=== PATIENT | male | born 1950 | race Caucasian/White ===

== ENCOUNTER 2017-05-02 11:34 | Inpatient (IN) | payer MEDICARE, MEDICAID ==
[~2017-05-02] VITALS: Ht 165.1 cm; Wt 125.4 kg
[2017-05-02] MEDS ORDERED: INSU100V4 SC (11:59)
[2017-05-02] MEDS ORDERED: METF500T27 PO (11:59)
[2017-05-02] MEDS ORDERED: LISI-167 PO (11:59)
[2017-05-02 12:19] LABS: HEMATOCRIT 43.8 % (39.2-51.8); HEMOGLOBIN 14.9 g/dL (13.7-18.0); WHITE BLOOD COUNT 20.6 x10^3/uL (3.4-10)
[2017-05-02 12:28] LABS: ASPARTATE AMINO TRANSFERASE 18 U/L (15-37); BLOOD UREA NITROGEN 37 mg/dL (7-18)
[2017-05-02 12:32] LABS: IS PT STATUS REG ER OR PRE ER? YES
[2017-05-02] MEDS: SODIUM CHLORIDE 0.9% 1,000 ML IV SCH (15:58)
[2017-05-02] MEDS ORDERED: DOCUSATE 100 MG CAPSULE PO PRN (16:00)
[2017-05-02] MEDS ORDERED: LABETALOL 5MG/ML, 20ML IVPush PRN (16:00)
[2017-05-02] MEDS ORDERED: ONDANSETRON ODT 4 MG PO PRN (16:00)
[2017-05-02] MEDS ORDERED: ONDANSETRON 2MG/ML, 2ML IVPush PRN (16:00)
[2017-05-02] MEDS ORDERED: HEPARIN 5,000 UNITS/ML, 1ML ONE (16:13)
[2017-05-02] MEDS: HEPARIN 5,000 UNITS/ML, 1ML SQ SCH (16:21)
[2017-05-02 17:25] VITALS: BP 103/65
[2017-05-02] MEDS: INSULIN ASPART 100 UNITS/ML, PEN SQ-INSULIN SCH ×2 (18:00→20:28)
[2017-05-02 20:00] VITALS: BP 101/69
[2017-05-03] MEDS: HEPARIN 5,000 UNITS/ML, 1ML SQ SCH ×3 (00:57→16:00)
[2017-05-03 02:39] VITALS: BP 115/75
[2017-05-03] MEDS: SODIUM CHLORIDE 0.9% 1,000 ML IV SCH ×2 (02:49→11:41)
[2017-05-03 06:09] LABS: HEMATOCRIT 41.9 % (39.2-51.8); HEMOGLOBIN 14.3 g/dL (13.7-18.0); WHITE BLOOD COUNT 16.6 x10^3/uL (3.4-10)
[2017-05-03 06:15] LABS: BLOOD UREA NITROGEN 40 mg/dL (7-18)
[2017-05-03 06:29] LABS: ASPARTATE AMINO TRANSFERASE 30 U/L (15-37)
[2017-05-03 07:12] VITALS: BP 118/58
[2017-05-03] MEDS: SENNA/DOCUSATE TABLET PO SCH (07:48)
[2017-05-03] MEDS: INSULIN ASPART 100 UNITS/ML, PEN SQ-INSULIN SCH ×4 (07:51→21:31)
[2017-05-03] MEDS: CEFTRIAXONE PMX 2GM/50ML 50 ML IV SCH (10:08)
[2017-05-03] MEDS: METRONIDAZOLE PMX 500MG/100ML 100 ML IV SCH ×2 (11:36→19:35)
[2017-05-03] MEDS ORDERED: hydrALAzine 20 MG/ML, 1ML IV PRN (12:30)
[2017-05-03 12:45] VITALS: BP 107/64
[2017-05-03] MEDS: ACETAMINOPHEN 325 MG TABLET PO PRN (15:04)
[2017-05-03] MEDS: FLUTICASONE/VILANTEROL 200-25MCG/INH INH SCH ×2 (16:00→17:51)
[2017-05-03 20:30] VITALS: BP 86/62
[2017-05-04] MEDS: HEPARIN 5,000 UNITS/ML, 1ML SQ SCH ×3 (00:28→16:21)
[2017-05-04 02:00] VITALS: BP 93/55
[2017-05-04] MEDS: METRONIDAZOLE PMX 500MG/100ML 100 ML IV SCH ×3 (04:44→20:34)
[2017-05-04 06:05] LABS: BLOOD UREA NITROGEN 53 mg/dL (7-18)
[2017-05-04 06:23] LABS: HEMATOCRIT 37.2 % (39.2-51.8); HEMOGLOBIN 12.7 g/dL (13.7-18.0); WHITE BLOOD COUNT 12.5 x10^3/uL (3.4-10)
[2017-05-04 07:20] VITALS: BP 94/64
[2017-05-04] MEDS: SENNA/DOCUSATE TABLET PO SCH (08:05)
[2017-05-04] MEDS: FLUTICASONE/VILANTEROL 200-25MCG/INH INH SCH (08:11)
[2017-05-04] MEDS: INSULIN ASPART 100 UNITS/ML, PEN SQ-INSULIN SCH ×4 (08:11→20:46)
[2017-05-04 12:53] VITALS: BP 91/61
[2017-05-04] MEDS: CEFTRIAXONE PMX 2GM/50ML 50 ML IV SCH (13:31)
[2017-05-04 18:49] VITALS: BP 90/60
[2017-05-05] MEDS: HEPARIN 5,000 UNITS/ML, 1ML SQ SCH ×3 (00:34→16:00)
[2017-05-05 01:34] VITALS: BP 113/74
[2017-05-05] MEDS: METRONIDAZOLE PMX 500MG/100ML 100 ML IV SCH ×3 (04:21→22:22)
[2017-05-05 05:48] LABS: HEMATOCRIT 35.9 % (39.2-51.8); HEMOGLOBIN 12.2 g/dL (13.7-18.0); WHITE BLOOD COUNT 9.8 x10^3/uL (3.4-10)
[2017-05-05 06:07] LABS: BLOOD UREA NITROGEN 47 mg/dL (7-18)
[2017-05-05 07:41] VITALS: BP 119/79
[2017-05-05] MEDS: SENNA/DOCUSATE TABLET PO SCH (08:22)
[2017-05-05] MEDS: FLUTICASONE/VILANTEROL 200-25MCG/INH INH SCH (08:23)
[2017-05-05] MEDS: INSULIN ASPART 100 UNITS/ML, PEN SQ-INSULIN SCH ×4 (08:30→22:23)
[2017-05-05] MEDS ORDERED: POTASSIUM CHLORIDE 20 MEQ TAB.ER.PRT PO ONE (09:30)
[2017-05-05] MEDS: CEFTRIAXONE PMX 2GM/50ML 50 ML IV SCH (10:22)
[2017-05-05 13:03] VITALS: BP 144/78
[2017-05-05] MEDS ORDERED: ALBUTEROL SULFATE 200 PUFFS/8.5 GR INH ONE (17:34)
[2017-05-05] MEDS ORDERED: BUPIVACAINE/PF 0.5% ONE (18:13)
[2017-05-05] MEDS ORDERED: EPINEPHRINE 1 MG/ML, 1ML ONE (18:14)
[2017-05-05] MEDS ORDERED: MIDAZOLAM 1 MG/ML, 2ML ONE (18:19)
[2017-05-05] MEDS ORDERED: PROPOFOL 10 MG/ML, 20ML ONE (18:19)
[2017-05-05] MEDS ORDERED: ONDANSETRON 2MG/ML, 2ML ONE (18:19)
[2017-05-05] MEDS ORDERED: GLYCOPYRROLATE 0.2MG/1ML, 5ML ONE (18:19)
[2017-05-05] MEDS ORDERED: SUCCINYLCHOLINE 20 MG/ML, 10ML ONE (18:19)
[2017-05-05] MEDS ORDERED: DEXAMETHASONE 4 MG/ML, 1ML ONE (18:19)
[2017-05-05] MEDS ORDERED: CEFAZOLIN 1,000 MG ONE (18:19)
[2017-05-05] MEDS ORDERED: FENTANYL PF 250 MCG/5ML ONE (18:19)
[2017-05-05] MEDS ORDERED: ROCURONIUM 10 MG/ML,10ML ONE (18:19)
[2017-05-05] MEDS ORDERED: NEOSTIGMINE 1 MG/ML, 10ML ONE (18:19)
[2017-05-05] MEDS ORDERED: LIDOCAINE GEL 2%, 5ML ONE (18:23)
[2017-05-05] MEDS ORDERED: BUPIVACAINE/PF-EPI 0.5% 1:200K IM ONE (18:34)
[2017-05-05] MEDS ORDERED: CEFOTETAN PMX 2GM/50ML 50 ML ONE (18:38)
[2017-05-05] MEDS ORDERED: PROMETHAZINE 25 MG/ML, 1ML IV PRN (19:00)
[2017-05-05] MEDS ORDERED: LORazepam 2 MG/ML, 1ML IVPush PRN (19:00)
[2017-05-05] MEDS ORDERED: MIDAZOLAM 1 MG/ML, 2ML IV PRN (19:00)
[2017-05-05] MEDS ORDERED: FENTANYL PF 100 MCG/2ML IV PRN (19:00)
[2017-05-05] MEDS ORDERED: OXYcodone 5 MG/5 ML ORAL.SOL UDC PO PRN (19:00)
[2017-05-05] MEDS ORDERED: HYDROmorphone 1 MG/ML, 1ML IV PRN (19:00)
[2017-05-05] MEDS ORDERED: hydrALAzine 20 MG/ML, 1ML IV PRN (19:00)
[2017-05-05] MEDS ORDERED: ONDANSETRON 2MG/ML, 2ML IVPush PRN (19:00)
[2017-05-05] MEDS ORDERED: LABETALOL 5MG/ML, 20ML IV PRN (19:00)
[2017-05-05] MEDS ORDERED: ALBUTEROL/IPRATROPIUM 2.5MG/0.5MG, 3 ML NPPB PRN (19:00)
[2017-05-05] MEDS ORDERED: THROMBIN 5,000 UNIT VIAL TP ONE ×2 (19:20→19:23)
[2017-05-05] MEDS ORDERED: ACETAMINOPHEN 650 MG/20.3 ML UDC ONE (20:09)
[2017-05-05] MEDS ORDERED: OXYcodone 5 MG/5 ML ORAL.SOL UDC ONE (20:09)
[2017-05-05] MEDS ORDERED: FENTANYL PF 100 MCG/2ML ONE (20:16)
[2017-05-05] MEDS ORDERED: HYDROmorphone 1 MG/ML, 1ML ONE (20:16)
[2017-05-05] MEDS: ACETAMINOPHEN 325 MG TABLET PO PRN (20:19)
[2017-05-05 21:30] VITALS: BP 132/85
[2017-05-05] MEDS ORDERED: NS + 20MEQ KCL 1,000 ML IV ONE (22:00)
[2017-05-05] MEDS: CEFOTETAN PMX 2GM/50ML 50 ML IV SCH (23:43)
[2017-05-06 02:15] VITALS: BP 114/68
[2017-05-06] MEDS: METRONIDAZOLE PMX 500MG/100ML 100 ML IV SCH ×3 (05:58→22:14)
[2017-05-06 06:11] LABS: HEMATOCRIT 39.2 % (39.2-51.8); HEMOGLOBIN 12.9 g/dL (13.7-18.0); WHITE BLOOD COUNT 9.7 x10^3/uL (3.4-10)
[2017-05-06 06:29] LABS: BLOOD UREA NITROGEN 29 mg/dL (7-18)
[2017-05-06] MEDS: HEPARIN 5,000 UNITS/ML, 1ML SQ SCH ×3 (08:00→17:22)
[2017-05-06 08:11] VITALS: BP 127/80
[2017-05-06] MEDS: FLUTICASONE/VILANTEROL 200-25MCG/INH INH SCH (08:56)
[2017-05-06] MEDS: INSULIN ASPART 100 UNITS/ML, PEN SQ-INSULIN SCH ×4 (08:57→21:11)
[2017-05-06] MEDS: SENNA/DOCUSATE TABLET PO SCH (08:57)
[2017-05-06] MEDS: CEFTRIAXONE PMX 2GM/50ML 50 ML IV SCH (08:57)
[2017-05-06] MEDS: CEFOTETAN PMX 2GM/50ML 50 ML IV SCH (11:47)
[2017-05-06 14:29] VITALS: BP 126/81
[2017-05-06] MEDS ORDERED: POLYETHYLENE GLYCOL 17 GM PACKET NG PRN (14:30)
[2017-05-06] MEDS: INSULIN DETEMIR 100 UNITS/ML, PEN SQ-INSULIN SCH (17:22)
[2017-05-06] MEDS ORDERED: PHENYLEPHRINE 10 MG/ML ONE (18:30)
[2017-05-06 19:02] VITALS: BP 140/81
[2017-05-07] MEDS: HEPARIN 5,000 UNITS/ML, 1ML SQ SCH ×3 (00:21→16:25)
[2017-05-07] MEDS: CEFOTETAN PMX 2GM/50ML 50 ML IV SCH ×2 (00:21→11:35)
[2017-05-07] MEDS ORDERED: TRAZODONE 50MG TABLET ONE (00:46)
[2017-05-07] MEDS ORDERED: TRAZODONE 50MG TABLET PO PRN (01:00)
[2017-05-07 01:25] VITALS: BP 104/68
[2017-05-07 05:12] LABS: BLOOD UREA NITROGEN 22 mg/dL (7-18)
[2017-05-07 06:11] LABS: HEMATOCRIT 36.9 % (39.2-51.8); HEMOGLOBIN 12.3 g/dL (13.7-18.0)
[2017-05-07] MEDS: METRONIDAZOLE PMX 500MG/100ML 100 ML IV SCH ×3 (06:17→22:02)
[2017-05-07 07:57] VITALS: BP 99/67
[2017-05-07] MEDS: INSULIN ASPART 100 UNITS/ML, PEN SQ-INSULIN SCH ×4 (08:38→20:49)
[2017-05-07] MEDS: INSULIN DETEMIR 100 UNITS/ML, PEN SQ-INSULIN SCH (08:38)
[2017-05-07] MEDS: FLUTICASONE/VILANTEROL 200-25MCG/INH INH SCH (08:38)
[2017-05-07] MEDS: SENNA/DOCUSATE TABLET PO SCH (08:39)
[2017-05-07 13:26] VITALS: BP 108/70
[2017-05-07 18:57] VITALS: BP 107/74
[2017-05-08] MEDS: HEPARIN 5,000 UNITS/ML, 1ML SQ SCH ×3 (00:13→16:18)
[2017-05-08] MEDS: CEFOTETAN PMX 2GM/50ML 50 ML IV SCH ×2 (00:15→13:05)
[2017-05-08 01:27] VITALS: BP 96/61
[2017-05-08] MEDS: METRONIDAZOLE PMX 500MG/100ML 100 ML IV SCH ×3 (05:14→16:11)
[2017-05-08 06:23] LABS: BLOOD UREA NITROGEN 18 mg/dL (7-18)
[2017-05-08 07:17] VITALS: BP 135/81
[2017-05-08] MEDS: INSULIN DETEMIR 100 UNITS/ML, PEN SQ-INSULIN SCH (07:56)
[2017-05-08] MEDS: INSULIN ASPART 100 UNITS/ML, PEN SQ-INSULIN SCH ×3 (07:57→16:18)
[2017-05-08] MEDS: FLUTICASONE/VILANTEROL 200-25MCG/INH INH SCH (07:58)
[2017-05-08] MEDS: SENNA/DOCUSATE TABLET PO SCH (07:58)
[2017-05-08 13:32] VITALS: BP 115/75
[2017-05-08] MEDS ORDERED: MAGNESIUM HYDROXIDE 8%, 30ML UDC ONE (16:22)
[2017-05-08] MEDS ORDERED: MAGNESIUM HYDROXIDE 8%, 30ML UDC PO PRN (16:30)
[2017-05-08 16:33] VITALS: BP 116/66
[2017-05-08] MEDS ORDERED: SENN1TAB7 PO (16:33)
[2017-05-08] MEDS ORDERED: METR500T PO (16:33)
[2017-05-08] MEDS ORDERED: FLUT1BLS INH (16:33)
[2017-05-08] MEDS ORDERED: CEFD300C37 PO (16:33)
[2017-05-08] MEDS ORDERED: POLY17PO5 NG (16:33)
== END 2017-05-08 17:40 | disposition home or self-care (01) | DRG 417 ==
LOC: ED 13:22 → 4EST 17:27 → 4NOR 05-08 11:52
PROVIDERS: ADMIT Hospitalist; ATTEND Internal Medicine
PROC: 0FT44ZZ Resection of Gallbladder, Percutaneous Endoscopic Approach (ICD-10-PCS; principal; 2017-05-05 18:00)
DX: K80.00 Calculus of gallbladder with acute cholecystitis without obstruction (principal); N17.0 Acute kidney failure with tubular necrosis; J18.9 Pneumonia, unspecified organism; K82.2 Perforation of gallbladder; E87.1 Hypo-osmolality and hyponatremia; K56.7 Ileus, unspecified; K76.0 Fatty (change of) liver, not elsewhere classified; J98.11 Atelectasis; E11.9 Type 2 diabetes mellitus without complications; I10 Essential (primary) hypertension; D72.829 Elevated white blood cell count, unspecified; R09.02 Hypoxemia; R00.0 Tachycardia, unspecified; K66.0 Peritoneal adhesions (postprocedural) (postinfection); N40.1 Benign prostatic hyperplasia with lower urinary tract symptoms; R33.8 Other retention of urine; Z79.84 Long term (current) use of oral hypoglycemic drugs; Z79.899 Other long term (current) drug therapy; Z82.5 Family history of asthma and other chronic lower respiratory diseases
CPT/HCPCS: 36415; 71010; 74020; 76700; 78226; 78582; 80048; 80053; 80061; 81001; 82962; 83036; 83735; 84484; 85025; 85379; 85610; 85730; 87040; 87086; 88304; 93005; 93306; 99285; J0171; J0690; J0696; J1100; J1170; J1644; J1815; J2250; J2405; J2704; J2710; J3010; J3480; J3490; A9537; A9540; A9558; C9898; J0330; J2370; J7030; S0074